=== PATIENT | male | born 1965 | race Caucasian/White ===

== ENCOUNTER → 2023-10-22 13:59 | Outpatient (REF) | payer OTHER, SELFPAY | LOC: RAD 13:59 | PROVIDERS: ATTENDING PHYSICIAN Internal Medicine; REFERRING PHYSICIAN Surgery | DX: N50.811 Right testicular pain (principal); R35.1 Nocturia | CPT/HCPCS: 76870; 93976 ==

== ENCOUNTER 2024-05-30 06:19 | Day surgery (SDC) | payer OTHER, SELFPAY | END 2024-05-30 10:28 | disposition home or self-care (01) | LOC: GI 06:19 | PROVIDERS: ATTENDING PHYSICIAN Internal Medicine | DX: Z12.11 Encounter for screening for malignant neoplasm of colon (principal); K57.30 Diverticulosis of large intestine without perforation or abscess without bleeding; K64.8 Other hemorrhoids; Z86.0100 Personal history of colon polyps, unspecified | CPT/HCPCS: G0105 ==